=== PATIENT | female | born 1980 | race Caucasian/White ===

== ENCOUNTER 2021-10-09 11:15 | Inpatient (IN) | payer OTHER ==
[~2021-10-09] VITALS: Ht 165.1 cm; Wt 58.1 kg
[~2021-10-09 11:15] MED LIST: ANAPROX275 MG PO; PEPCID40 MG PO; POLY119PG PO; SURFAK240 MG NGT; ULTRACET PO; ZOFRAN4 MG PO
== END 2021-10-16 14:38 | DRG 743 ==
LOC: SURG-SUITE 10-15 06:00 → O/R 10-15 06:00 → SURH 10-15 07:00 → SURG-SUITE 10-15 14:20
PROVIDERS: ADMIT Obstetrics & Gynecology; ATTEND Obstetrics & Gynecology
PROC: 0UQF7ZZ Repair Cul-de-sac, Via Natural or Artificial Opening (ICD-10-PCS; 2021-10-15)
PROC: 0USG7ZZ Reposition Vagina, Via Natural or Artificial Opening (ICD-10-PCS; 2021-10-15)
PROC: 0TJB8ZZ Inspection of Bladder, Via Natural or Artificial Opening Endoscopic (ICD-10-PCS; 2021-10-15)
PROC: 0UT97ZZ Resection of Uterus, Via Natural or Artificial Opening (ICD-10-PCS; principal; 2021-10-15 07:00)
DX: D25.1 Intramural leiomyoma of uterus (principal); N72 Inflammatory disease of cervix uteri; Z20.822 Contact with and (suspected) exposure to COVID-19; N81.5 Vaginal enterocele